=== PATIENT | male | born 1970 | race Caucasian/White ===

== ENCOUNTER 2018-10-15 07:17 | Emergency (ER) | payer OTHER ==
[~2018-10-15] VITALS: Ht 165.1 cm; Wt 78.9 kg
[2018-10-15 07:21] VITALS: Ht 165.1 cm; Wt 78.9 kg
[2018-10-15 07:39] VITALS: BP 151/113
[2018-10-15 07:53] LABS: BASOPHIL % 0.4 % (0-2); PLATELET COUNT 234 x10^3mcL (130-400); RED CELL DISTRIBUTION WIDTH 14.3 % (11.5-14.5)
[2018-10-15 08:07] LABS: CALCIUM 8.7 mg/dL (8.5-10.1); CARBON DIOXIDE 25.1 mmol/L (21-32); CHLORIDE SERUM 99 mmol/L (98-107); GFR1 > 60 mL/min; GLUCOSE SERUM 97 mg/dL (74-106); POTASSIUM SERUM 3.2 mmol/L (3.5-5.1); SODIUM SERUM 129 mmol/L (136-145)
[2018-10-15 08:11] LABS: ALBUMIN 3.8 g/dL (3.4-5.0); ALKALINE PHOSPHATASE 81 U/L (46-116); ALT/SGPT 47 U/L (16-63); AST/SGOT 23 U/L (15-37); BILIRUBIN TOTAL 0.54 mg/dL (0.20-1.00); TOTAL PROTEIN, SERUM 7.2 g/dL (6.4-8.2)
== END 2018-10-15 08:48 | disposition home or self-care (01) ==
LOC: ED 07:17
PROVIDERS: Emergency Medicine
DX: F41.9 Anxiety disorder, unspecified (principal); R07.89 Other chest pain; E87.1 Hypo-osmolality and hyponatremia; E87.6 Hypokalemia
CPT/HCPCS: 36415; Q0092

== ENCOUNTER 2018-10-17 13:19 | Emergency (ER) | payer OTHER ==
[~2018-10-17] VITALS: Ht 165.1 cm; Wt 78.0 kg
[2018-10-17 13:28] VITALS: BP 141/96; Ht 165.1 cm; Wt 78.0 kg
== END 2018-10-17 14:09 | disposition home or self-care (01) ==
LOC: ED 13:19
DX: Z02.79 Encounter for issue of other medical certificate (principal); R07.89 Other chest pain; R42 Dizziness and giddiness; R51 Headache

== ENCOUNTER 2019-02-20 19:30 | Inpatient (IN) | payer SELFPAY ==
[~2019-02-20] VITALS: Ht 160 cm; Wt 81.7 kg
--- NOTE | 2019-02-20 19:38 | NUR ---
EKG IN PROGRESS IN TRIAGE.
[2019-02-20 19:55] LABS: BASOPHIL % 0.3 % (0-2); PLATELET COUNT 245 x10^3mcL (130-400); RED CELL DISTRIBUTION WIDTH 14.2 % (11.5-14.5)
[2019-02-20 20:04] LABS: CALCIUM 8.7 mg/dL (8.5-10.1); CARBON DIOXIDE 25.5 mmol/L (21-32); CHLORIDE SERUM 105 mmol/L (98-107); GFR1 > 60 mL/min; GLUCOSE SERUM 91 mg/dL (74-106); SODIUM SERUM 141 mmol/L (136-145)
[2019-02-20 20:09] LABS: ALBUMIN 4.1 g/dL (3.4-5.0); ALKALINE PHOSPHATASE 88 U/L (46-116); ALT/SGPT 54 U/L (16-63); AST/SGOT 29 U/L (15-37); BILIRUBIN TOTAL 0.6 mg/dL (0.20-1.00); LIPASE 133 IU/L (73-393); TOTAL PROTEIN, SERUM 7.8 g/dL (6.4-8.2)
--- NOTE | 2019-02-20 21:15 | NUR ---
PT PRESENTS TO ER TODAY WITH C/O OF EPIGASTRIC PAIN THAT STARTED APPROX 3 DAYS AGO. PT ALSO REPORTS SOB AND THROAT PAIN. PT LUNG SOUNDS ARE CLEAR IN ALL FILEDS WITH AUSCULATION. PT DENIES ANY N/V/D. PT IS A/O X4. RESP ARE EQUAL AND UNLABORED. NO ACUTE DISTRESS NOTED. PT PLACED ON FULL CM.
[2019-02-20 21:37] LABS: CHOLESTEROL/HDL RATIO 6.9
--- NOTE | 2019-02-20 23:22 | NUR ---
REPORT GIVEN TO MONSERRAT KING TO ASSUME CARE OF PT.
--- NOTE | 2019-02-20 23:37 | NUR ---
RECEIVED PT FROM ED VIA Tip or SkipASHLEY, CAME IN DUE TO CHEST AND EPIGASTRIC PAIN W/ SOB. AAOX4. DENIES HEADACHE/DIZZINESS. ABLE TO FOLLOW COMMANDS. NO SOB NOTED, LUNG SOUNDS CTA, O2 SAT=98%, RA. DENIES CHEST PAIN/PRESSURE, SR ON THE MONITOR. DENIES ABDOMINAL DISCOMFORT. LAST BM=02/19/19. VOIDS. IV SITE PATENT AND INTACT. SIDE RAILS UPX2. CALL LIGHT ON REACH. ENDORSED TO PRIMARY NURSE MONSERRAT FOR CONTINUITY OF CARE
[2019-02-20 23:46] VITALS: BP 153/98
[2019-02-20 23:51] VITALS: Ht 160 cm; Wt 81.7 kg
--- NOTE | 2019-02-21 02:00 | NUR ---
ROUNDS MADE. PT RESTING. NO SIGNS OF DISTRESS NOTED. CALL BUTTON WITHIN REACH. SAFETY PRECAUTIONS IN PLACE. WILL MONITOR.
[2019-02-21 05:10] VITALS: BP 122/80
--- NOTE | 2019-02-21 06:19 | NUR ---
PT SLEPT ON AND OFF THROUGHOUT THE NIGHT WITH NO SIGNS IF DISTRESS. MEDICATED PER EMAR. PT AMBULATORY WITH BRP. PT DENIES ANY CHEST PAIN/PRESSURE. NO SIGNS OF DISTRESS. CALL BUTTON WITHIN REACH. SAFETY PRECAUTIONS IN PLACE. WILL CONTINUE TO MONITOR AND ENDORSE CARE TO DAY SHIFT RN.
--- NOTE | 2019-02-21 07:30 | NUR ---
PT ENDORSE TO ME THIS MORNING, LAYING IN BED RESTING, AA/O X4, BREATHING EVEN AND UNLABORED ON RA, NO ACUTE RESP DISTRESS OR SOB NOTED. TELE 11 SR NOTED/ DENIES ANY CP OR PRESSURE. AMB, VOIDS FREELY. IV TO THE RAC INTACT AND PATENT/ INFUSING AT 100 ML / HR, NO REDNESS OR SWELLING NOTED. WILL CONTINUE TO MONITOR.
--- NOTE | 2019-02-21 07:30 | NUR ---
PT AWAKE DENIES ANY PAIN. NO SIGNS OF DISTRESS. CALL BUTTON WITHIN REACH. ENDORSED CARE TO DAY SHIFT RN, ALL QUESTIONS ADDRESSED.
[2019-02-21 08:49] VITALS: BP 148/99
[2019-02-21] MEDS ORDERED: GOOD SENSE OMEP20 MG PO (11:55)
[2019-02-21] MEDS ORDERED: LOP600 PO (11:57)
[2019-02-21 13:10] VITALS: BP 154/98
--- NOTE | 2019-02-21 14:24 | NUR ---
Discount pharmacy card and list to low cost medical clinics given to patient by [facility].
[2019-02-21 14:29] VITALS: BP 132/87
--- NOTE | 2019-02-21 14:33 | NUR ---
EXPLAINED DISHCARGE INSTRUCTIONS, NEW MEDICATION AND APPT HE MUST MAKE WITH DR. WHITNEY AND PRIMARY DOC WITHIN ONE WEEK, PT AGREED AND SIGNED ALL DISCHARGE PAPER WORK. REMOVED IV TO RAC, TOLERATED WELL. RETURNED TELE 11 BACK TO TELE. PENDING DC, PT WAITING TO SPK TO CASE MANAGMENT REGRADING INSURANCE QUESTIONS.
--- NOTE | 2019-02-21 14:57 | NUR ---
WALKED PT DOWN TO DISCHARGE LOBBY. PT IS BREATHING EVEN AND UNLABORED ON RA, NO ACUTE RESP DISTRESS OR SOB NOTED/ DENIES ANY CP OR PRESSURE. DISCHARGED.
== END 2019-02-21 14:53 | disposition home or self-care (01) | DRG 392 ==
LOC: ED 19:30 → DU 23:06
PROVIDERS: Emergency Medicine; ADMIT Internal Medicine
DX: K21.9 Gastro-esophageal reflux disease without esophagitis (principal); E78.00 Pure hypercholesterolemia, unspecified; F41.9 Anxiety disorder, unspecified
CPT/HCPCS: 83880; C9113; G0378; J7030; Q0092